=== PATIENT | female | born 1945 | race Caucasian/White ===

== ENCOUNTER 2017-12-10 15:01 | Outpatient (CLI) | payer MEDICARE, BC ==
--- NOTE | 2017-12-10 20:30 | ULT ---
THYROID ULTRASOUND: 12/10/17 Ultrasonography of the thyroid gland was performed for evaluation of nodules. I did not see any prior ultrasound in the patient's folder. The gland overall is normal in size. The right lobe measures 3.9 x 1.6 x 1.7 cm and the left lobe is 3.2 x 1.3 x 1.6 cm. There is a slightly hypoechoic nodule in the middle third to perhaps lower portion of the right lobe that measures 1.4 x 1.1 x 1.8 cm. it does appear to have blood flow within it. Its margins are slight ly lobulated but not entirely discrete. Given these findings, I would be considered that further work up is needed to rule out neoplasm. Elsewhere, both lobes are a bit inhomogeneous but no other nodules were definitively seen. IMPRESSION: 1.4 cm slightly hypoechoic nodule in the right lobe, middle to lower third. Blood flow is present and its margins are not remarkably discrete. Biopsy is recommended. Code T POS: HOME
== END 2017-12-10 15:02 | disposition home or self-care (01) ==
LOC: BURULT 15:01
PROVIDERS: ATTEND Specialist
DX: E04.2 Nontoxic multinodular goiter (principal)
CPT/HCPCS: 76536

== ENCOUNTER 2020-12-27 08:59 | Outpatient (CLI) | payer MEDICARE | END 2020-12-27 09:00 | disposition home or self-care (01) | LOC: BURRAD 08:59 | PROVIDERS: ATTEND Nurse Practitioner | DX: M54.31 Sciatica, right side (principal); M25.551 Pain in right hip; M47.816 Spondylosis without myelopathy or radiculopathy, lumbar region; K59.00 Constipation, unspecified | CPT/HCPCS: 72100 ==

== ENCOUNTER 2021-04-24 11:26 | Outpatient (CLI) | payer MEDICARE | END 2021-04-24 11:27 | disposition home or self-care (01) | LOC: BURRAD 11:26 | PROVIDERS: ATTEND Nurse Practitioner | DX: S93.491A Sprain of other ligament of right ankle, initial encounter (principal) ==